=== PATIENT | female | born 1990 | race American Indian/Alaskan Native ===

== ENCOUNTER 2017-02-24 14:28 | Emergency (ER) | payer OTHER ==
[2017-02-24] MEDS ORDERED: Bacitracin 500 Units/gm Oint Foilpak UD TOP ONE (16:06)
--- NOTE | 2017-02-24 16:08 | C.PDOC ---
History Of Present Illness 26 y/o obese female c/o left ankle pain s/p slip and fall, able to bear weight with pain. pt also c/o scratches to right leg. no other injuries. Time Seen by Provider: 02/24/17 15:33 Chief Complaint (Nursing): Lower Extremity Problem/Injury Past Medical History Vital Signs: Last Vital Signs Temp 98.2 F 02/24/17 17:32 Pulse 80 02/24/17 17:32 Resp 18 02/24/17 17:32 BP 102/72 02/24/17 17:32 Pulse Ox 97 02/26/17 12:38 - Medical History PMH: Asthma, Back Problems Family History: States: Unknown Family Hx - Social History Hx Alcohol Use: Yes Hx Substance Use: No - Immunization History Hx Tetanus Toxoid Vaccination: No Hx Influenza Vaccination: Yes Hx Pneumococcal Vaccination: No Review Of Systems Constitutional: Negative for: Fever, Chills Musculoskeletal: Positive for: Leg Pain (ankle left) Skin: Positive for: Other (abrasion right lower leg) Neurological: Negative for: Weakness, Numbness Physical Exam - Physical Exam Appears: Non-toxic, No Acute Distress Skin: Normal Color, Warm, Dry, Other (abrasion anterior right lower leg) Neck: Normal ROM, No Midline Cervical Tenderness Back: Normal Inspection, No Vertebral Tenderness Extremity: Tenderness (left lateral ankle, mild swelling, left foot non tender. from all joints in left lower extremity) Pulses: Left Dorsalis Pedis: Normal, Right Dorsalis Pedis: Normal Neurological/Psych: Oriented x3, Normal Speech, Normal Cognition, Normal Motor, Normal Sensation ED Course And Treatment O2 Sat by Pulse Oximetry: 97 Medical Decision Making Medical Decision Making: no fx on xray; will wrap left ankle and provide crutches. f/u ortho if pain persists. Disposition Counseled Patient/Family Regarding: Studies Performed, Diagnosis, Need For Followup, Rx Given - Disposition Referrals: Moriah Callahan MD [Staff Provider] - Ana Caputo MD [Non-Staff] - Disposition: HOME/ ROUTINE Disposition Time: 17:09 Condition: STABLE Additional Instructions: RICE: rest, ice, elevate and compress- to left ankle. No weight beating for a few days- use crutches, then gently start putting weight on foot. Follow up with your doctor or in orthopedics in pain persists. Prescriptions: Ibuprofen [Motrin] 600 mg PO TID #30 tab Instructions: Ankle Sprain (ED) Forms: General Discharge Instructions, [facility] (Danish), Work Excuse - Clinical Impression Clinical Impression: Left ankle sprain, Fall from slipping
--- NOTE | 2017-02-24 16:51 | RAD ---
PROCEDURE: Left Ankle Radiographs. HISTORY: lat mal pain COMPARISON: None available. FINDINGS: BONES: No acute displaced fracture. JOINTS: No dislocation. SOFT TISSUES: Soft tissue swelling. No evidence of radiopaque foreign body. OTHER FINDINGS: None. IMPRESSION: Soft tissue swelling. No acute displaced fracture, dislocation, or significant joint effusion identified. If symptoms persist or if there is clinical concern, x-ray follow-up in 7-10 days should be considered.
[2017-02-24 17:33] VITALS: BP 102/72; PULSE 80; RESP 18; TEMP 98.2
[2017-02-26 12:36] VITALS: O2SAT 97
== END 2017-02-24 17:32 | disposition home or self-care (01) ==
LOC: C.ER 14:28
DX: S93.402A Sprain of unspecified ligament of left ankle, initial encounter (principal); S80.812A Abrasion, left lower leg, initial encounter; W01.0XXA Fall on same level from slipping, tripping and stumbling without subsequent striking against object, initial encounter; Y92.9 Unspecified place or not applicable